=== PATIENT | male | born 1950 | race Caucasian/White ===

== ENCOUNTER 2019-01-22 09:33 | Inpatient (IN) | payer OTHER ==
[~2019-01-22 09:33] MED LIST: BACITRACIN 50,000 UNITS/10 ML SYR IRR ONE; BUPIVACAINE 0.25% 30 ML SDV ONE; BUPIVACAINE/EPI 0.25% 30 ML SDV ONE; CHLORHEXIDINE GLUC HIBICLENS 118 ML BTL TP ONE; CITRATE DEXTROSE SOLN 500 ML BAG ONE; THROMBIN (BOVINE) 20,000 UNIT VIAL TP ONE; TRANEXAMIC ACID 1,000 MG in NS 100 ML IV ONE
[2019-01-22] MEDS ORDERED: ceFAZolin 2 GM/DEXTROSE 100 ML IV ONE (09:41)
[2019-01-22] MEDS ORDERED: fentaNYL 50 MCG in SYRINGE INTRATHECAL 1 SYR IT ONE (09:41)
[2019-01-22] MEDS ORDERED: morphINE PF 0.2 MG in SYRINGE INTRATHECAL 1 SYR IT ONE (09:41)
[2019-01-22] MEDS ORDERED: ACETAMINOPHEN 500 MG TAB PO ONE (09:41)
[2019-01-22] MEDS ORDERED: GABAPENTIN 300 MG CAP PO ONE (09:41)
[2019-01-22] MEDS ORDERED: LR 1,000 ML IV ONE (10:04)
--- NOTE | 2019-01-22 10:38 | PDHPUP ---
History & Physical Update H&P update statement: This history and physical update is based on an assessment of the patient which was completed after admission or registration (within 24 hours), but prior to the surgery/procedure. H&P update: H&P reviewed & patient examined, no change in patient's condition since H&P completed
[2019-01-22] MEDS ORDERED: MIDAZOLAM 2 MG/2 ML VIAL ONE (11:10)
--- NOTE | 2019-01-22 11:10 | PDANEPAE ---
ANE History of Present Illness L3-S1 TLIF for cord compression and radiculopathy ANE Past Medical History - Cardiovascular History Hx Hypertension: Yes Hx Arrhythmias: No Hx Chest Pain: No Hx Coronary Artery / Peripheral Vascular Disease: No Hx CHF / Valvular Disease: No Hx Palpitations: No - Pulmonary History Hx COPD: No Hx Asthma/Reactive Airway Disease: No Hx Recent Upper Respiratory Infection: No Hx Oxygen in Use at Home: No Hx Sleep Apnea: No Sleep Apnea Screening Result - Last Documented: Negative Pulmonary History Comment: PNEUMONIA 2005 - Neurologic History Hx Cerebrovascular Accident: No Hx Seizures: No Hx Dementia: No - Endocrine History Hx Diabetes: No - Renal History Hx Renal Disorders: No - Liver History Hx Hepatic Disorders: No - Neurological & Psychiatric Hx Hx Neurological and Psychiatric Disorders: No - Cancer History Hx Cancer: No - Congenital Disorder History Hx Congenital Disorders: No - GI History Hx Gastrointestinal Disorders: No - Other Health History Other Health History: NEG - Chronic Pain History Chronic Pain: Yes (LOW BACK , KNEE R & HERNIA L) - Surgical History Prior Surgeries: HIP R FX REPAIR & FEMUR REPAIR. HARDWARE REMOVAL HIP R. THUMB R. SPINAL EPIDURAL INJS & ABLATION ANE Review of Systems Review of Systems: - Exercise capacity METS (RN): 4 METS ANE Patient History - Allergies Allergies/Adverse Reactions: levofloxacin [From Levaquin] Allergy (Verified 01/22/19 09:50) Hives - Home Medications Home Medications: Diltiazem HCl [Cartia XT 180mg] 180 mg PO DAILY 01/18/19 [Last Taken 01/22/19 08 :00] Febuxostat [Uloric] 40 mg PO DAILY 01/18/19 [Last Taken 01/22/19 08:00] Herbals/Supplements -Info Only 1 ea PO DAILY 01/18/19 [Last Taken Unknown] Triamterene/Hctz 37.5/25 [Dyazide 37.5/25 (*)] 1 each PO DAILY 01/18/19 [Last Taken 01/22/19 08:00] - NPO status NPO Since - Liquids (Date): 01/22/19 NPO Since - Liquids (Time): 08:00 NPO Since - Solids (Date): 01/21/19 NPO Since - Solids (Time): 20:00 - Smoking Hx Smoking Status: Former smoker ANE Labs/Vital Signs - Vital Signs Blood Pressure: 130/83 Heart Rate: 57 Respiratory Rate: 16 O2 Sat (%): 95 Height: 175.26 cm Weight: 77.111 kg ANE Physical Exam - Airway Neck exam: FROM Mallampati Score: Class 1 Mouth exam: normal dental/mouth exam - Pulmonary Pulmonary: no respiratory distress, no rales or rhonchi - Cardiovascular Cardiovascular: regular rate and rhythym, no murmur, rub, or gallop - ASA Status ASA Status: III ANE Anesthesia Plan Anesthesia Plan: general endotracheal anesthesia Total IV Anesthesia: Yes
[2019-01-22] MEDS ORDERED: MIDAZOLAM 2 MG/2 ML VIAL IVP ONE (11:11)
[2019-01-22] MEDS ORDERED: ROCURONIUM 50 MG/5 ML VIAL ONE (11:15)
[2019-01-22] MEDS ORDERED: LIDOCAINE 2% 100 MG/5 ML SYR ONE (11:15)
[2019-01-22] MEDS ORDERED: ONDANSETRON 4 MG/2 ML VIAL ONE (11:15)
[2019-01-22] MEDS ORDERED: REMIFENTANIL HCL 1 MG VIAL ONE (11:15)
[2019-01-22] MEDS ORDERED: PROPOFOL/EMULSION 500 MG/50 ML BOTTLE IV ONE ×4 (11:15→15:34)
[2019-01-22] MEDS ORDERED: DEXAMETHASONE 4 MG/ML VIAL ONE (11:15)
[2019-01-22] MEDS ORDERED: PROPOFOL 200 MG/20 ML VIAL ONE (11:15)
[2019-01-22] MEDS ORDERED: HYDROmorphONE/DILAUDID 2 MG/ML INJ ONE (15:29)
[2019-01-22] MEDS ORDERED: BISACODYL 10 MG SUPP PR PRN (16:14)
[2019-01-22] MEDS ORDERED: diphenhydrAMINE 25 MG CAP PO PRN (16:14)
[2019-01-22] MEDS ORDERED: MAGNESIUM HYDROXIDE 30 ML UDCUP PO PRN (16:14)
[2019-01-22] MEDS ORDERED: ONDANSETRON DISINTEGRATING 4 MG TAB PO PRN (16:14)
[2019-01-22] MEDS ORDERED: LACTULOSE 20 GM/30 ML UDCUP PO PRN (16:14)
[2019-01-22] MEDS ORDERED: NALOXONE HCL 0.4 MG/ML INJ IVP PRN ×2 (16:14→16:18)
[2019-01-22] MEDS ORDERED: ONDANSETRON 4 MG/2 ML VIAL IVP PRN (16:14)
[2019-01-22] MEDS ORDERED: NS 1,000 ML IV SCH (16:15)
[2019-01-22] MEDS ORDERED: oxyCODONE IR 5 MG TAB PO PRN (16:18)
[2019-01-22] MEDS ORDERED: LR 500 ML IV PRN (16:18)
[2019-01-22] MEDS ORDERED: HYDROmorphONE/DILAUDID 1 MG/ML INJ IVP PRN (16:18)
[2019-01-22] MEDS ORDERED: DIAZEPAM 5 MG/ML 1 ML SYR IVP PRN (16:18)
[2019-01-22] MEDS ORDERED: PROMETHAZINE HCL 25 MG/ML INJ IVP PRN (16:18)
[2019-01-22] MEDS ORDERED: MEPERIDINE 25 MG/0.5 ML AMP IVP PRN (16:18)
[2019-01-22] MEDS ORDERED: PHENYLEPHRINE HCL 100 MCG/ML SYR IVP PRN (16:18)
[2019-01-22] MEDS ORDERED: fentaNYL 100 MCG/2 ML INJ IVP PRN (16:18)
--- NOTE | 2019-01-22 16:21 | SOAPPROG ---
SOAP Progress Note Assessment/Plan: Assessment: 68 yo M sp L3-S1 TLIF Plan: stable to 3N PT/OT lovenox starts POD #1 please call with neuro changes 01/22/19 16:20 Subjective: + back pain, no leg pain Objective: Vital Signs Temp Pulse Resp BP Pulse Ox 36.6 C 57 L 16 130/83 H 95 01/22/19 09:51 01/22/19 11:10 01/22/19 11:10 01/22/19 11:10 01/22/19 11:10 somnolent PERRL, EOMI, no facial droop MAY x4 + light touch ICD10 Worksheet Patient Problems: Problems Problem Status Onset Fusion of spine of lumbar region Acute Lumbar stenosis Acute - ICD10 Problem Qualifiers (1) Fusion of spine of lumbar region
--- NOTE | 2019-01-22 16:39 | POSTANESTH ---
Post Anesthetic Evaluation Cardiovascular Status: Normal, Stable Respiratory Status: Normal, Stable Level of Consciousness/Mental Status: Can Participate in Eval, Moderately Sleepy Pain Control: Adequate, Prn Tx Ordered Nausea/Vomiting Control: Adequate, Prn Tx Ordered Complications Possibly Related to Anesthesia: None Noted
--- NOTE | 2019-01-22 16:57 | PDMN ---
Medical Necessity Medical necessity: [facility] [place]bar [place], 2 days: 68 yo s/p L3/S1 TLLIF Lum [place] Fusion w/ Stealth. [facility] IP Only.
--- NOTE | 2019-01-22 17:25 | GOP ---
[f rep st] OPERATIVE REPORT DATE OF OPERATION: 01/22/2019 SURGEON: Gamal Borges MD NEUROSURGEON: Gamal Borges MD HOT WALKER: Pedro Romero PA-C ANESTHESIA: General endotracheal. PREOPERATIVE DIAGNOSIS: Diagnosis intractable low back pain. Severe multilevel lumbar degenerative joint disease and neural foraminal encroachment. Failed conservative care. POSTOPERATIVE DIAGNOSIS: Diagnosis intractable low back pain. Severe multilevel lumbar degenerative joint disease and neural foraminal encroachment. Failed conservative care. PROCEDURE PERFORMED: L3-4, L4-5, and L5-S1 far lateral transpedicular decompression with L3 through S1 posterior segmental (pedicle screw and axle device) fixation and posterolateral fusion with local autograft, bone morphogenic protein, and morselized allograft. L3-4 L4-5 and L5-S1 posterior/transfo raminal lumbar interbody fusion with 2 structural PEEK interbody spacers with local autograft and bon e morphogenic protein. Use of intraoperative microscopy fluoroscopy and computer volumetric stereota ctic navigation, and intraoperative neurophysiologic testing. Injection of intrathecal narcotic anal gesics and subcutaneous and intramuscular local anesthesia for postoperative pain control. FINDINGS: ESTIMATED BLOOD LOSS: 200 cc. INDICATIONS: The patient is a 68-year-old man with intractable back pain, secondary to multilevel catrachita mbar degenerative joint disease, severe disk space collapse, neural foraminal compression. He has fa iled extensive conservative care and presents now for surgical decompression and stabilization. It w as clearly explained to the patient that there is no guarantee that he will improve and he could get worse from the surgery or have other complications. DESCRIPTION OF PROCEDURE: After informed consent was obtained, the patient was taken to the operatin g room and placed in the prone position on the Tyshawn table. The lumbosacral area was prepped and d raped in a sterile fashion. After fluoroscopic localization of correct levels, the subcutaneous and intramuscular tissues were infiltrated with local anesthesia. A midline linear incision was then created from approximately L3 through S1. This was carried down t o the fascial layer, which was then incised using monopolar electrocautery and carried in the subperi osteal plane along the spinous processes and lamina bilaterally. Intraoperative fluoroscopy was agai n utilized to verify the correct levels. Following this, left-sided far lateral transpedicular decom pressions were performed at the L3-4, L4-5, and L5-S1 levels with complete unroofing of the facet arslan nts and neural foramina and central canal. The Pure life renal neuronavigational system was then brought in and using computer volumetric stereotactic navigation, pedicle screws were placed at L3, L4, L5, and S1 bilaterally. Each individual screw was tested neurophysiologically with monopolar electrostimulat ion and interpretation of the potentials by the surgeon. Short rods were then placed serially first at L5-S1, then at L4-5, then L3-4 under distraction, during which time complete diskectomies were per formed at each of the individual levels with preparation of the endplates and placement of 2 structur al PEEK interbody spacer with local autograft and bone morphogenic protein for L3-4, L4-5, and L5-S1 posterior/transforaminal lumbar interbody fusions. The small rods were then removed and longer rods extending from L3 to S1 with a maximum amount of curvature was then placed and secured under compress ion in order to facilitate bony union and minimize the potential for posterior graft migration. Foll owing this, 200 mcg of Duramorph, along with 50 mcg of fentanyl were injected intrathecally for posto perative pain control, and the remaining lamina and facet joints were extensively decorticated from L 3 to S1 on the right side. The residual local autograft, along with bone morphogenic protein and mor selized allograft were placed out laterally for posterolateral fusion from L3 to S1. An axle device was placed at the L3-4 level in order to prevent junctional kyphosis and hardware failure. A drain was placed. The subcutaneous and intramuscular tissues were re-infiltrated with local anesth esia and the wound was closed in layered fashion using interrupted Vicryl sutures, followed by Steri- Strips on the skin. COMPLICATIONS: None. DISPOSITION: The patient is currently in the process of being repositioned for extubation. /[id number]/MODL
[2019-01-22] MEDS: SENNOSIDES/DOCUSATE SODIUM TAB PO SCH (20:15)
[2019-01-22] MEDS: FAMOTIDINE 20 MG TAB PO SCH (20:15)
[2019-01-22] MEDS: POLYETHYLENE GLYCOL 3350 17 GM PKT PO SCH (21:45)
[2019-01-22] MEDS: ceFAZolin 2 GM/DEXTROSE 100 ML IV SCH (21:45)
[2019-01-23 04:57] LABS: PLATELET COUNT 206 10^3/uL (150-400)
[2019-01-23] MEDS: ceFAZolin 2 GM/DEXTROSE 100 ML IV SCH (05:29)
[2019-01-23] MEDS ORDERED: LORazepam 2 MG/ML INJ IVP PRN (07:29)
[2019-01-23] MEDS ORDERED: FLUMAZENIL 0.5 MG/5 ML MDV IVP PRN (07:29)
--- NOTE | 2019-01-23 07:29 | NEUSURGPN ---
Date of Surgery: 01/22/19 Post Op Day: 1 Assessment/Plan: Assessment: 68 yo M sp L3-S1 TLIF POD#1 Plan: Brace on when out of bed Post op xrays pending [id number] 310 output, will leave in for now PT/OT lovenox starts POD #1 On CIWA protocol please call with neuro changes Discussed patient with Dr Borges Subjective: Doing well, no complaints Objective: AxOx4 MAEx4 5/5 BLE, BUE Sensation intact to light touch BLE Incision/dressing CDI KARLO patent Neuro Check Frequency: per routine - Physician Discussed Patient with : [facility] Neuro[facility] Physical Exam - Vitals, I&O, Labs I and O 01/22/19 01/23/19 01/24/19 05:59 05:59 05:59 Intake Total 2550 200 Output Total 2205 65 Balance 345 135 Weight 77.111 kg Intake: Oral (ml) 750 IV Intake (ml) 1800 IV Infused (ml) 200 ceFAZolin 2 GM/DEXTROSE 200 100 ml @ 200 mls/hr IV Q8HRS [facility] Rx#:[id number] Output: Urine (ml) 1750 Catheter 1750 Estimated Blood Loss (ml) 200 Emesis (ml) 0 KARLO Drain Output (ml) 255 65 #1 Back Tyshawn Leavitt 255 65 Other: Number of Voids Catheter 1 Vital Signs Temp Pulse Resp BP Pulse Ox 36.9 C 70 17 98/68 L 95 01/23/19 04:00 01/23/19 04:00 01/23/19 04:00 01/23/19 04:00 01/23/19 04:00 Laboratory Results 01/23/19 04:29 01/23/19 04:29 ICD10 Worksheet Patient Problems: Problems Problem Status Onset Lumbar stenosis Acute - ICD10 Problem Qualifiers (1) Lumbar stenosis
[2019-01-23] MEDS: ENOXAPARIN 40 MG/0.4 ML SYR SC SCH (09:24)
[2019-01-23] MEDS: POLYETHYLENE GLYCOL 3350 17 GM PKT PO SCH ×3 (09:24→20:31)
[2019-01-23] MEDS: DILTIAZEM CD 180 MG CAP PO SCH (09:25)
[2019-01-23] MEDS: SENNOSIDES/DOCUSATE SODIUM TAB PO SCH ×2 (09:26→20:30)
[2019-01-23] MEDS: TRIAMTERENE/HCTZ 37.5/25 1 EACH CAP PO SCH (09:26)
[2019-01-23] MEDS: FAMOTIDINE 20 MG TAB PO SCH ×2 (09:26→20:30)
[2019-01-23] MEDS: Febuxostat [Uloric] 40 MG PO SCH (09:28)
[2019-01-23] MEDS: THIAMINE HCL 500 MG in NS 100 ML IV SCH (09:34)
[2019-01-23] MEDS: oxyCODONE IR 5 MG TAB PO PRN ×3 (10:57→20:29)
--- NOTE | 2019-01-23 15:18 | ASMTCMCOM ---
CM Note CM Note Notes: Pt had planned surgery, resides with spouse. OT/PT rec home. Anticipate pt will d/c when medically stable, no CM d/c needs identified. CM available for changes/needs. D/c plan: Independent Date Signed: 01/23/2019 03:15 PM Electronically Signed By:EMMA Zaman
[2019-01-23] MEDS: METHOCARBAMOL 750 MG TAB PO PRN (20:30)
[2019-01-24] MEDS: METHOCARBAMOL 750 MG TAB PO PRN ×3 (03:47→18:42)
[2019-01-24] MEDS: oxyCODONE IR 5 MG TAB PO PRN ×5 (03:47→21:34)
--- NOTE | 2019-01-24 07:55 | SOAPPROG ---
SOAP Progress Note Assessment/Plan: Assessment: 68 yo M POD #2 L3-S1 TLIF Plan: stable and doing well overall :) post op x-rays look good PT/OT lovenox/scd/alexis/ for dvt prophylaxis lso brace when out of bed please call with neuro changes discharge when pain controlled discussed with Dr Mendoza 01/22/19 16:20 01/24/19 07:54 Subjective: + back pain, no leg pain, no weakness. Objective: Vital Signs Temp Pulse Resp BP Pulse Ox 36.6 C 60 16 110/79 92 01/24/19 07:23 01/24/19 07:23 01/24/19 07:23 01/24/19 07:23 01/24/19 07:23 Laboratory Results 01/23/19 04:29 01/23/19 04:29 01/23/19 01/24/19 01/25/19 05:59 05:59 05:59 Intake Total 2550 1050 Output Total 2205 1820 Balance 345 -770 AAOx4, +FC PERRL, EOMI, no facial droop 5/5 + light touch C/D/I ICD10 Worksheet Patient Problems: Problems Problem Status Onset Fusion of spine of lumbar region Acute Lumbar stenosis Acute - ICD10 Problem Qualifiers (1) Fusion of spine of lumbar region
[2019-01-24] MEDS: THIAMINE HCL 500 MG in NS 100 ML IV SCH (08:04)
[2019-01-24] MEDS: DILTIAZEM CD 180 MG CAP PO SCH (08:05)
[2019-01-24] MEDS: FAMOTIDINE 20 MG TAB PO SCH ×2 (08:05→21:33)
[2019-01-24] MEDS: ENOXAPARIN 40 MG/0.4 ML SYR SC SCH (08:05)
[2019-01-24] MEDS: SENNOSIDES/DOCUSATE SODIUM TAB PO SCH ×2 (08:06→21:35)
[2019-01-24] MEDS: TRIAMTERENE/HCTZ 37.5/25 1 EACH CAP PO SCH (08:06)
[2019-01-24] MEDS: POLYETHYLENE GLYCOL 3350 17 GM PKT PO SCH ×3 (08:06→21:35)
[2019-01-24] MEDS: Febuxostat [Uloric] 40 MG PO SCH (08:07)
[2019-01-25] MEDS: METHOCARBAMOL 750 MG TAB PO PRN ×4 (00:03→13:05)
[2019-01-25] MEDS: oxyCODONE IR 5 MG TAB PO PRN ×4 (01:02→13:05)
[2019-01-25 08:00] VITALS: BP 118/72
--- NOTE | 2019-01-25 08:20 | NEUSURGPN ---
Date of Surgery: 01/22/19 Post Op Day: 3 Assessment/Plan: Assessment: 68 yo M POD #3 L3-S1 TLIF Plan: stable and doing well overall post op x-rays stable hardware placement PT/OT lovenox/scd/alexis/ for dvt prophylaxis lso brace when out of bed please call with neuro changes Remove KARLO drain Ok to shower ok to discharge home today discussed with Dr Mendoza Subjective: doing well with pain medication schedule this am Objective: AxOx4 MAEx4 5/5 BUE, BLE Dressing/Incision CDI KARLO patent Neuro Check Frequency: per routine Urinary Catheter in Place: No - Physician Discussed Patient with DrCesar: J[facility] Neurosurgery Physical Exam - Vitals, I&O, Labs I and O 01/24/19 01/25/19 01/26/19 05:59 05:59 05:59 Intake Total 1050 Output Total 1820 105 Balance -770 -105 Intake: Oral (ml) 850 IV Infused (ml) 200 ceFAZolin 2 GM/DEXTROSE 200 100 ml @ 200 mls/hr IV Q8HRS [facility] Rx#:[id number] Output: Urine (ml) 1450 Toilet 1100 Urinal 350 KARLO Drain Output (ml) 370 105 #1 Back Tyshawn Leavitt 370 105 Other: Intake Quantity Yes Sufficient Number of Voids Toilet 1 1 Urinal 1 Number of Stools Toilet 1 Bladder Scan Volume (ml) Urinal 475 Vital Signs Temp Pulse Resp BP Pulse Ox 36.9 C 68 14 118/72 96 01/25/19 07:59 01/25/19 07:59 01/25/19 07:59 01/25/19 07:59 01/25/19 07:59 Laboratory Results 01/23/19 04:29 01/23/19 04:29 ICD10 Worksheet Patient Problems: Problems Problem Status Onset Fusion of spine of lumbar region Acute Lumbar stenosis Acute - ICD10 Problem Qualifiers (1) Lumbar stenosis
--- NOTE | 2019-01-25 09:46 | ASMTLACE ---
[facility] Length of stay for Answers: 3 days current admission Acuity / Level of Answers: Yes Care: Did the patient have an inpatient admission? Comorbidities - select Answers: Opioid dependence all that apply / Chronic pain # of Emergency department Answers: 0 visits in the last 6 months Score: 10 Date Signed: 01/25/2019 09:45 AM Electronically Signed By:Aranza Aggarwal RN
[2019-01-25] MEDS: DILTIAZEM CD 180 MG CAP PO SCH (10:10)
[2019-01-25] MEDS: TRIAMTERENE/HCTZ 37.5/25 1 EACH CAP PO SCH (10:11)
[2019-01-25] MEDS: FAMOTIDINE 20 MG TAB PO SCH (10:11)
[2019-01-25] MEDS: ENOXAPARIN 40 MG/0.4 ML SYR SC SCH (10:11)
[2019-01-25] MEDS: Febuxostat [Uloric] 40 MG PO SCH (10:12)
[2019-01-25] MEDS: POLYETHYLENE GLYCOL 3350 17 GM PKT PO SCH (10:30)
[2019-01-25] MEDS: THIAMINE HCL 500 MG in NS 100 ML IV SCH (10:30)
[2019-01-25] MEDS: SENNOSIDES/DOCUSATE SODIUM TAB PO SCH (10:30)
[2019-01-26] MEDS ORDERED: THIAMINE HCL 100 MG TAB PO SCH (07:29)
[2019-02-11] MEDS ORDERED: PROPOFOL 200 MG/20 ML VIAL ONE (07:14)
[2019-02-11] MEDS ORDERED: REMIFENTANIL HCL 1 MG VIAL ONE ×2 (07:14)
[2019-02-11] MEDS ORDERED: PROPOFOL/EMULSION 500 MG/50 ML BOTTLE IV ONE ×2 (07:14)
[2019-02-11] MEDS ORDERED: LIDOCAINE 2% 100 MG/5 ML SYR ONE (07:14)
[2019-02-11] MEDS ORDERED: ROCURONIUM 50 MG/5 ML VIAL ONE (07:14)
[2019-02-11] MEDS ORDERED: DEXAMETHASONE 4 MG/ML VIAL ONE (07:14)
[2019-02-11] MEDS ORDERED: ONDANSETRON 4 MG/2 ML VIAL ONE (07:14)
== END 2019-01-25 13:09 | disposition home or self-care (01) | DRG 455 ==
LOC: F3N 09:33
PROVIDERS: ADMIT Neurological Surgery; ATTEND Neurological Surgery
DX: M51.36 Other intervertebral disc degeneration, lumbar region (principal); M51.26 Other intervertebral disc displacement, lumbar region; I10 Essential (primary) hypertension
CPT/HCPCS: 97161-GP; 97165-GO; C1713; C1762; J0690; J1100; J1170; J1650; J2001; J2250; J2274; J2405; J2704; J3010; J3411

== ENCOUNTER 2019-01-25 19:50 | Emergency (ER) | payer OTHER ==
--- NOTE | 2019-01-25 19:54 | EDPHY ---
General Time Seen by Provider: 01/25/19 19:54 Narrative: CLINICAL IMPRESSION: [ ] ASSESSMENT/PLAN: [ ] DIFFERENTIAL DX: [ ] [ED PROCEDURES:] [ ] ED COURSE: CHIEF COMPLAINT: [ ] HPI: [ ] PMH: [ ] Pertinent Past Surgical History: [ ] Family History: [ ] Social History: [ ] REVIEW OF SYSTEMS: All other systems negative Constitutional: [No fever, no chills, appetite change.] Eyes: [No discharge, vision change] ENT: [No sore throat, congestion, ear pain.] Cardiovascular: [No chest pain, no palpitations.] Respiratory: [No cough, no shortness of breath.] Gastrointestinal: [No abdominal pain, no vomiting, diarrhea.] Genitourinary: [No hematuria, dysuria, flank pain.] Musculoskeletal: [No back pain, joint swelling, joint pain, myalgias.] Skin: [No rashes, color change.] Neurological: [No headache, dizziness, weakness.] PHYSICAL EXAM: General Appearance: [Well-appearing, no acute distress and not toxic-appearing. ] HENT: [ Normocephalic, atraumatic. Bilateral external ears are normal. Bilateral tympanic membranes are normal with pearly johns reflex. Nares are clear, mucosa is pink. Oropharynx is clear, uvula is midline. There is no tonsillar enlargement or exudate. The dentition is normal.] Eyes: [PERRLA, no acute vision change, nystagmus, swelling, discharge, pain or photosensitivity. Conjunctiva pink, no pallor or injection] Neck: [Supple, nontender, no lymphadenopathy, no midline pain, FROM, no meningismus.] Respiratory: [There are no retractions, lungs are clear to auscultation.] Cardiac: [Regular rate and rhythm, no murmurs or gallops.] Gastrointestinal: [Abdomen is soft, nontender, bowel sounds normal, no masses/ hernia, no rigidity, guarding or focal peritoneal findings.] Neurological: [ Alert and oriented x 3, CN 2-12 grossly intact, normal sensation and strength] Skin: [Warm, dry, no rashes, no nodules on palpation.] Musculoskeletal: [Extremities are symmetrical, full range of motion, no tenderness, deformity, swelling, or erythema.] Psychiatric: [Mood and affect are normal, there is no agitation.] MEDICAL DECISION MAKING: Patient was seen independently. Secondary supervising physician at time of evaluation was [ ]. Diagnosis: [ ]. Summary: [ See Assessment and Plan for summary of ED visit ] Clinical lab tests: [ ordered / reviewed]. Independent visualization of images, tracing, or specimens: [ Yes / No]. Decision to obtain medical records or history from someone other than the patient: [ ] Review / Summarize previous medical records: [ ] Discussed patient with another provider: [ ] Patient Progress: [ ]. - History Smoking Status: Former smoker - Objective Vital Signs: Initial Vital Signs Temperature (C) 38.1 C 01/25/19 19:51 Heart Rate 105 H 01/25/19 19:51 Respiratory Rate 20 01/25/19 19:51 Blood Pressure 148/96 H 01/25/19 19:51 O2 Sat (%) 93 01/25/19 19:51 O2 Delivery Mode Room Air Allergies/Adverse Reactions: levofloxacin [From Levaquin] Allergy (Verified 01/25/19 19:51) Hives Home Medications: Medication Instructions Recorded Diltiazem HCl [Cartia XT 180mg] 180 mg PO DAILY 01/18/19 Febuxostat [ULORIC] 40 mg PO DAILY 01/18/19 Herbals/Supplements -Info Only 1 ea PO DAILY 01/18/19 Triamterene/Hctz 37.5/25 [Dyazide 1 each PO DAILY 01/18/19 37.5/25 (*)] Methocarbamol [Robaxin 750 mg (*)] 750 mg PO QID PRN tab 01/25/19 Sennosides/Docusate Sodium 1 - 2 tab PO BID tab 01/25/19 [Senokot-S] oxyCODONE IR [Oxycodone Ir (*)] 5 - 10 mg PO Q4HRS PRN tab 01/25/19 Departure - Departure Condition: Good
[2019-01-25] MEDS ORDERED: NS 1,000 ML IV ONE (19:57)
--- NOTE | 2019-01-25 20:08 | EDPHY ---
H & P Stated Complaint: DC'd today post lumbar fusion 01/22, returns with fever and pain Time Seen by Provider: 01/25/19 19:54 HPI/ROS: CHIEF COMPLAINT: Postoperative fever HISTORY OF PRESENT ILLNESS: The patient presents to the ED with complaints of postoperative fever for the past day. He is postoperative day 3 status post 3 level lumbar fusion. The patient was discharged from the hospital today. The patient denies any acute numbness or weakness in his legs. He denies cough or congestion. He denies rash or dysuria. The patient has no significant comorbidities aside from hypertension and gout. The patient has been using incentive spirometer. He is complaining of some discomfort in his abdominal musculature secondary to having to use muscles that he is not used in some time for ambulation. The patient contacted his neurosurgeon's office today and was referred to the ED for further evaluation. REVIEW OF SYSTEMS: A comprehensive 10 point review of systems is otherwise negative aside from elements mentioned in the history of present illness. Source: Patient Exam Limitations: No limitations - Personal History Current Tetanus/Diphtheria Vaccine: Yes Current Tetanus Diphtheria and Acellular Pertussis (TDAP): Yes - Medical/Surgical History Hx Asthma: No Hx Chronic Respiratory Disease: No Hx Diabetes: No Hx Cardiac Disease: No Hx Renal Disease: No Hx Cirrhosis: No Hx Alcoholism: No Hx HIV/AIDS: No Hx Splenectomy or Spleen Trauma: No Other PMH: right hip, femur, hardware remove, lumbar fusion - Social History Smoking Status: Former smoker - Physical Exam Exam: General Appearance: Alert, no distress Eyes: Pupils equal and round no pallor or injection ENT, Mouth: Mucous membranes moist Respiratory: There are no retractions, lungs are clear to auscultation Cardiovascular: Regular rate and rhythm Gastrointestinal: Abdomen is soft and nontender, no masses, bowel sounds normal Neurological: A&O, normal motor function, normal sensory exam, normal cranial nerves Skin: Surgical without significant discharge, surgical incision clean dry and intact Musculoskeletal: Neck is supple nontender Extremities: symmetrical, full range of motion Constitutional: Initial Vital Signs Temperature (C) 38.1 C 01/25/19 19:51 Heart Rate 105 H 01/25/19 19:51 Respiratory Rate 20 01/25/19 19:51 Blood Pressure 148/96 H 01/25/19 19:51 O2 Sat (%) 93 01/25/19 19:51 O2 Delivery Mode Room Air O2 (L/minute) 2 Allergies/Adverse Reactions: levofloxacin [From Levaquin] Allergy (Verified 01/25/19 19:51) Hives Home Medications: Medication Instructions Recorded Diltiazem HCl [Cartia XT 180mg] 180 mg PO DAILY 01/18/19 Febuxostat [ULORIC] 40 mg PO DAILY 01/18/19 Herbals/Supplements -Info Only 1 ea PO DAILY 01/18/19 Triamterene/Hctz 37.5/25 [Dyazide 1 each PO DAILY 01/18/19 37.5/25 (*)] Methocarbamol [Robaxin 750 mg (*)] 750 mg PO QID PRN tab 01/25/19 Sennosides/Docusate Sodium 1 - 2 tab PO BID tab 01/25/19 [Senokot-S] oxyCODONE IR [Oxycodone Ir (*)] 5 - 10 mg PO Q4HRS PRN tab 01/25/19 Medical Decision Making - Diagnostics Imaging Results: Imaging Impressions Chest X-Ray 01/25/19 19:57 Impression: Equivocal small left lateral lower lung zone infiltrate. ED Course/Re-evaluation: Patient presents the ED with a 1 day history of low-grade fever 38 degrees. Patient's surgical incision is clean dry and intact. There is no evidence of dehiscence or discharge. The patient's chest x-ray demonstrates likely atelectasis. The patient has no symptoms of urinary tract infection. The patient has no appreciable leukocytosis. He is neurologically intact. Given the fact the patient is only postop day 3 I feel the likelihood of a surgical infection is quite low. Additionally an MRI is likely to be nondiagnostic given how close he is to his operation. I discussed the case with Dr. George who was aware of the patient's transfer to the emergency department and he is comfortable with the patient going home and keeping an eye on his fever curve over the next several days. - Data Points Laboratory Results: Laboratory Results 01/25/19 20:04 01/25/19 20:04 01/25/19 01/25/19 20:04 20:04 WBC 10.65 10^3/uL H 10^3/uL (3.80-9.50) RBC 5.31 10^6/uL 10^6/uL (4.40-6.38) Hgb 17.5 g/dL g/dL (13.7-17.5) Hct 50.6 % % (40.0-51.0) MCV 95.3 fL fL (81.5-99.8) MCH 33.0 pg pg (27.9-34.1) MCHC 34.6 g/dL g/dL (32.4-36.7) RDW 11.8 % % (11.5-15.2) Plt Count 208 10^3/uL 10^3/uL (150-400) MPV 10.4 fL fL (8.7-11.7) Neut % (Auto) 72.5 % % (39.3-74.2) Lymph % (Auto) 16.6 % % (15.0-45.0) Humphreys % (Auto) 8.7 % % (4.5-13.0) Eos % (Auto) 1.4 % % (0.6-7.6) Baso % (Auto) 0.4 % % (0.3-1.7) Nucleat RBC Rel Count 0.0 % % (0.0-0.2) Absolute Neuts (auto) 7.72 10^3/uL H 10^3/uL (1.70-6.50) Absolute Lymphs (auto) 1.77 10^3/uL 10^3/uL (1.00-3.00) Absolute Monos (auto) 0.93 10^3/uL H 10^3/uL (0.30-0.80) Absolute Eos (auto) 0.15 10^3/uL 10^3/uL (0.03-0.40) Absolute Basos (auto) 0.04 10^3/uL 10^3/uL (0.02-0.10) Absolute Nucleated RBC 0.00 10^3/uL 10^3/uL (0-0.01) Immature Gran % 0.4 % % (0.0-1.1) Immature Gran # 0.04 10^3/uL 10^3/uL (0.00-0.10) Sodium 133 mEq/L L mEq/L (135-145) Potassium 3.4 mEq/L L mEq/L (3.5-5.2) Chloride 92 mEq/L L mEq/L (97-110) Carbon Dioxide 27 mEq/l mEq/l (22-31) Anion Gap 14 mEq/L mEq/L (6-14) BUN 15 mg/dL mg/dL (7-23) Creatinine 1.2 mg/dL mg/dL (0.7-1.3) Estimated GFR > 60 Glucose 94 mg/dL mg/dL (70-100) Calcium 9.5 mg/dL mg/dL (8.5-10.4) Medications Given: Discontinued Medications Hydromorphone HCl (Dilaudid) 0.5 mg IVP EDNOW ONE Stop: 01/25/19 21:02 Last Admin: 01/25/19 21:08 Dose: 0.5 mg Sodium Chloride (Ns) 1,000 mls @ 0 mls/hr IV ONCE ONE; Wide Open PRN Reason: Protocol Stop: 01/25/19 19:58 Last Admin: 01/25/19 20:03 Dose: 1,000 mls Morphine Sulfate (Morphine) 4 mg IVP EDNOW ONE Stop: 01/25/19 20:28 Last Admin: 01/25/19 20:30 Dose: 4 mg Departure - Departure Disposition: Home, Routine, Self-Care Clinical Impression: Fever, Atelectasis Condition: Good Instructions: Atelectasis (ED) Additional Instructions: 1. Please follow-up with your neurosurgeon for recheck this week. 2. Return to the ED for worsening symptoms, markedly elevated fever, acute numbness, weakness or other concerns. 3. Please continue to use your incentive spirometer as you likely are having a fever from not taking deep breaths. 4. Please contact your neurosurgeon tomorrow with an update on your condition. Referrals: Gamal Borges MD [Medical Doctor] - As per Instructions
[2019-01-25 20:25] LABS: PLATELET COUNT 208 10^3/uL (150-400)
[2019-01-25] MEDS ORDERED: HYDROmorphONE/DILAUDID 2 MG/ML INJ IVP ONE (21:01)
[2019-01-25 22:00] VITALS: BP 135/81
== END 2019-01-25 22:02 | disposition home or self-care (01) ==
DX: R50.82 Postprocedural fever (principal); J98.11 Atelectasis; I10 Essential (primary) hypertension; M10.9 Gout, unspecified; Z98.1 Arthrodesis status; Z87.891 Personal history of nicotine dependence
CPT/HCPCS: 71046; 96374; 96375; 99284; J1170; J2270

== ENCOUNTER 2019-01-28 05:54 | Observation (INO) | payer OTHER ==
--- NOTE | 2019-01-28 06:10 | EDPHY ---
H & P Stated Complaint: BACK PAIN, N/V/D Time Seen by Provider: 01/28/19 06:10 HPI/ROS: HPI CHIEF COMPLAINT: Nausea vomiting diarrhea increasing back pain. Recent ER visit, recent lumbar fusion. HISTORY OF PRESENT ILLNESS: 68-year-old male, with a recent lumbar fusion, presents to the emergency room nausea vomiting and diarrhea. Patient states that was recently in the emergency room for low-grade fever of 38 degrees, back pain. He states that he received pain medicine here in emergency room and did well and then was discharged home. However after arriving home he has had increasing nausea vomiting and diarrhea. He is unable to tolerate his p.o. Medications at home. He denies high fever. He presents back to the emergency room nausea vomiting diarrhea and back pain. Unable to tolerate home medications. He denies any chest pain or shortness of breath or productive cough. Past Medical History: Hypertension and gout Past Surgical History: Lumbar fusion Social History: Denies drugs alcohol tobacco. Resides in [facility]. Family History: Noncontributory Dr. Mendoza is his neurosurgeon. ROS REVIEW OF SYSTEMS: 10 Systems were reviewed and negative with the exception of the elements mentioned in the history of present illness. Exam Constitutional triage nursing summary reviewed, vital signs reviewed, awake/ alert. Vital signs stable. Eyes normal conjunctivae and sclera, EOMI, PERRLA. HENT normal inspection, atraumatic, moist mucus membranes, no epistaxis, neck supple/ no meningismus, no raccoon eyes. Respiratory clear to auscultation bilaterally, normal breath sounds, no respiratory distress, no wheezing. Cardiovascular rate normal, regular rhythm, no murmur, no edema, distal pulses normal. Gastrointestinal soft, non-tender, no rebound, no guarding, normal bowel sounds, no distension, no pulsatile mass. Genitourinary no CVA tenderness. Musculoskeletal back exam: Clean incision, no signs of dehiscence or infection no redness no drainage. Normal range of motion of bilateral lower extremities. no midline vertebral tenderness, full range of motion, no calf swelling, no tenderness of extremities, no meningismus, good pulses, neurovascularly intact. Skin pink, warm, & dry, no rash, skin atraumatic. Neurologic awake, alert and oriented x 3, AAOx3, moves all 4 extremities equally, motor intact, sensory intact, CN II-XII intact, normal cerebellar, normal vision, normal speech. Psychiatric normal mood/affect. Heme/Lymph/Immune no lymphadenopathy. Differential Diagnosis: Includes but is not limited to in a particular order acute dehydration, electrolyte disturbance, acute GI illness, nausea vomiting diarrhea, pneumonia, infection Medical Decision Making: Plan for this patient he arrives to the emergency room nausea vomiting diarrhea worsening. Unable to tolerate p.o. Meds. IV last stab she receive IV Dilaudid for pain control IV Zofran nausea, IV fluids, basic labs, repeat chest x-ray and re-evaluate. Re-evaluation: Patient re-evaluated 7:15 a.m. Improved after IV fluids IV Dilaudid IV Zofran. Still has back pain. No fever here, no signs of cauda equina, no leg weakness no saddle anesthesia. Incision appears clean dry and intact. Spoke with Neurosurgery Dr. Calloway, understands patient is coming in the hospital for further care. Will consult the hospitalist service for admission. X-ray of the chest: One view negative for acute cardiopulmonary disease. Image interpreted by myself. 737 re-evaluation plan for hospital admission for nausea vomiting diarrhea back pain. No red flags on exam. No saddle anesthesia, no leg weakness, no evidence of infection at the surgical site. Plan for admission for nausea vomiting diarrhea pain control. Patient updated agrees for this plan. Spoke with Dr. Mac, Agrees to admit. Source: Patient - Personal History Current Tetanus Diphtheria and Acellular Pertussis (TDAP): Yes - Medical/Surgical History Hx Asthma: No Hx Chronic Respiratory Disease: No Hx Diabetes: No Hx Cardiac Disease: No Hx Renal Disease: No Hx Cirrhosis: No Hx Alcoholism: No Hx HIV/AIDS: No Hx Splenectomy or Spleen Trauma: No Other PMH: right hip, femur, hardware remove, lumbar fusion - Social History Smoking Status: Former smoker Constitutional: Initial Vital Signs Temperature (C) 36.9 C 01/28/19 06:02 Heart Rate 104 H 01/28/19 06:02 Respiratory Rate 16 01/28/19 06:02 Blood Pressure 147/88 H 01/28/19 06:02 O2 Sat (%) 94 01/28/19 06:02 O2 Delivery Mode Room Air Allergies/Adverse Reactions: levofloxacin [From Levaquin] Allergy (Verified 01/25/19 19:51) Hives Home Medications: Medication Instructions Recorded Diltiazem HCl [Cartia XT 180mg] 180 mg PO DAILY 01/18/19 Febuxostat [ULORIC] 40 mg PO DAILY 01/18/19 Herbals/Supplements -Info Only 1 ea PO DAILY 01/18/19 Triamterene/Hctz 37.5/25 [Dyazide 1 each PO DAILY 01/18/19 37.5/25 (*)] Methocarbamol [Robaxin 750 mg (*)] 750 mg PO QID PRN tab 01/25/19 Sennosides/Docusate Sodium 1 - 2 tab PO BID tab 01/25/19 [Senokot-S] oxyCODONE IR [Oxycodone Ir (*)] 5 - 10 mg PO Q4HRS PRN tab 01/25/19 Medical Decision Making - Data Points Laboratory Results: Laboratory Results 01/28/19 06:31 01/28/19 06:31 01/28/19 01/28/19 01/28/19 06:31 06:31 06:31 WBC 9.52 10^3/uL H 10^3/uL (3.80-9.50) RBC 5.05 10^6/uL 10^6/uL (4.40-6.38) Hgb 16.7 g/dL g/dL (13.7-17.5) Hct 46.8 % % (40.0-51.0) MCV 92.7 fL fL (81.5-99.8) MCH 33.1 pg pg (27.9-34.1) MCHC 35.7 g/dL g/dL (32.4-36.7) RDW 11.5 % % (11.5-15.2) Plt Count 251 10^3/uL 10^3/uL (150-400) MPV 10.1 fL fL (8.7-11.7) Neut % (Auto) 78.6 % H % (39.3-74.2) Lymph % (Auto) 9.9 % L % (15.0-45.0) [place] % (Auto) 9.0 % % (4.5-13.0) Eos % (Auto) 1.4 % % (0.6-7.6) Baso % (Auto) 0.4 % % (0.3-1.7) Nucleat RBC Rel Count 0.0 % % (0.0-0.2) Absolute Neuts (auto) 7.48 10^3/uL H 10^3/uL (1.70-6.50) Absolute Lymphs (auto) 0.94 10^3/uL L 10^3/uL (1.00-3.00) Absolute Monos (auto) 0.86 10^3/uL H 10^3/uL (0.30-0.80) Absolute Eos (auto) 0.13 10^3/uL 10^3/uL (0.03-0.40) Absolute Basos (auto) 0.04 10^3/uL 10^3/uL (0.02-0.10) Absolute Nucleated RBC 0.00 10^3/uL 10^3/uL (0-0.01) Immature Gran % 0.7 % % (0.0-1.1) Immature Gran # 0.07 10^3/uL 10^3/uL (0.00-0.10) PT 12.6 SEC SEC (12.0-15.0) INR 0.98 (0.83-1.16) APTT 28.6 SEC SEC (23.0-38.0) VBG Lactic Acid Sodium 134 mEq/L L mEq/L (135-145) Potassium 3.7 mEq/L mEq/L (3.5-5.2) Chloride 96 mEq/L L mEq/L (97-110) Carbon Dioxide 22 mEq/l mEq/l (22-31) Anion Gap 16 mEq/L H mEq/L (6-14) BUN 18 mg/dL mg/dL (7-23) Creatinine 1.2 mg/dL mg/dL (0.7-1.3) Estimated GFR > 60 Glucose 111 mg/dL H mg/dL (70-100) Calcium 9.3 mg/dL mg/dL (8.5-10.4) Total Bilirubin 1.0 mg/dL mg/dL (0.1-1.4) Conjugated Bilirubin 0.5 mg/dL mg/dL (0.0-0.5) Unconjugated Bilirubin 0.5 mg/dL mg/dL (0.0-1.1) AST 26 IU/L IU/L (17-59) ALT 41 IU/L IU/L (21-72) Alkaline Phosphatase 54 IU/L IU/L (38-126) Total Protein 6.9 g/dL g/dL (6.3-8.2) Albumin 4.1 g/dL g/dL (3.5-5.0) Lipase 73 IU/L IU/L (23-300) 01/28/19 06:31 WBC RBC Hgb Hct MCV MCH MCHC RDW Plt Count MPV Neut % (Auto) Lymph % (Auto) [place] % (Auto) Eos % (Auto) Baso % (Auto) Nucleat RBC Rel Count Absolute Neuts (auto) Absolute Lymphs (auto) Absolute Monos (auto) Absolute Eos (auto) Absolute Basos (auto) Absolute Nucleated RBC Immature Gran % Immature Gran # PT INR APTT VBG Lactic Acid 2.3 mmol/L H mmol/L (0.7-2.1) Sodium Potassium Chloride Carbon Dioxide Anion Gap BUN Creatinine Estimated GFR Glucose Calcium Total Bilirubin Conjugated Bilirubin Unconjugated Bilirubin AST ALT Alkaline Phosphatase Total Protein Albumin Lipase Medications Given: Discontinued Medications Fentanyl (Sublimaze) 100 mcg IVP EDNOW ONE Stop: 01/28/19 07:34 Last Admin: 01/28/19 07:37 Dose: 100 mcg Hydromorphone HCl (Dilaudid) 1 mg IVP EDNOW ONE Stop: 01/28/19 06:22 Last Admin: 01/28/19 06:40 Dose: 1 mg Sodium Chloride (Ns) 1,000 mls @ 0 mls/hr IV EDNOW ONE; Wide Open PRN Reason: Protocol Stop: 01/28/19 06:22 Last Admin: 01/28/19 06:39 Dose: 1,000 mls Sodium Chloride (Ns) 1,000 mls @ 0 mls/hr IV EDNOW ONE; Wide Open PRN Reason: Protocol Stop: 01/28/19 06:22 Last Admin: 01/28/19 06:31 Dose: 1,000 mls Ondansetron HCl (Zofran) 4 mg IVP EDNOW ONE Stop: 01/28/19 06:22 Last Admin: 01/28/19 06:39 Dose: 4 mg Departure - Departure Disposition: [facility] Acute Clinical Impression: Fusion of lumbar spine, Vomiting, Diarrhea, Back pain Condition: Fair
[2019-01-28] MEDS ORDERED: HYDROmorphONE/DILAUDID 2 MG/ML INJ IVP ONE (06:21)
[2019-01-28] MEDS ORDERED: NS 1,000 ML IV ONE ×2 (06:21)
[2019-01-28] MEDS ORDERED: ONDANSETRON 4 MG/2 ML VIAL IVP ONE (06:21)
[2019-01-28 06:43] LABS: PLATELET COUNT 251 10^3/uL (150-400)
[2019-01-28 06:52] LABS: INR 0.98 (0.83-1.16); PROTIME(PATIENT) 12.6 SEC (12.0-15.0)
[2019-01-28] MEDS ORDERED: fentaNYL 100 MCG/2 ML INJ IVP ONE (07:33)
--- NOTE | 2019-01-28 08:27 | PDGENHP ---
History and Physical - Chief Complaint pain, diarrhea, - History of Present Illness EDD SUGGS is a 68-year-old male with past medical history of hypertension and gout who was recently admitted for a L3 through S1 TLIF on January 22 who presented to the emergency room with complaints of fevers chills diarrhea and uncontrollable pain. Says he was discharged and felt that he was discharged too early. Since discharge he has not been able to control his back pain. He also has had subjective fevers. He re-presented to the emergency room night after discharge, with complaints of a fever to 38 degrees. He also has complained of persistent diarrhea and abdominal discomfort since that time. He states that the abdominal pain is due to having to logroll in order to sit up. He has also had nausea with some intermittent vomiting. He has denied any bloody or black stools. He denied any cough chest pain dysuria hematuria or urinary symptoms. He denied any numbness tingling loss of bowel or bladder or extremity weakness. History Information - Allergies/Home Medication List Allergies/Adverse Reactions: levofloxacin [From Levaquin] Allergy (Verified 01/25/19 19:51) Hives Home Medications: Diltiazem HCl [Cartia XT 180mg] 180 mg PO DAILY 01/18/19 [Last Taken 01/27/19] Febuxostat [ULORIC] 40 mg PO DAILY 01/18/19 [Last Taken 01/27/19] Triamterene/Hctz 37.5/25 [Dyazide 37.5/25 (*)] 1 each PO DAILY 01/18/19 [Last Taken 01/27/19] I have personally reviewed and updated: family history, medical history, social history, surgical history - Past Medical History Additional medical history: gout, htn, - Surgical History Additional surgical history: spinal fusion, pin in right leg. - Family History Positive for: non-pertinent - Social History Smoking Status: Former smoker Alcohol Use: Occasionally Drug Use: None Review of Systems Review of Systems: ROS: 10pt was reviewed & negative except for what was stated in HPI & below Physical Exam Physical Exam: Temp Pulse Resp BP Pulse Ox 36.9 C 92 20 120/89 H 97 01/28/19 06:02 01/28/19 07:00 01/28/19 07:00 01/28/19 07:00 01/28/19 07:00 Constitutional: no apparent distress, appears nourished, not in pain Eyes: PERRL, anicteric sclera, EOMI Ears, Nose, Mouth, Throat: moist mucous membranes, hearing normal, ears appear normal, no oral mucosal ulcers Cardiovascular: regular rate and rhythym, no murmur, rub, or gallop, No edema Respiratory: no respiratory distress, no rales or rhonchi, clear to auscultation Gastrointestinal: normoactive bowel sounds, soft, non-tender abdomen, no palpable masses Genitourinary: no bladder fullness, no bladder tenderness Skin: warm, normal color, no rashes or abrasions, no fluctuance, no induration, other (Lower back incision is covered with bandage with some mild bruising and erythema surrounding incision.), No mottled Musculoskeletal: full muscle strength, no muscle tenderness, normal joint ROM, no joint effusions Psychiatric: interacting appropriately, not anxious, not encephalopathic, thought process linear Lymph, Heme, Immunologic: no cervical LAD, no supraclavicular LAD Lab Data & Imaging Review 01/28/19 06:31 01/28/19 06:31 WBC 9.52 10^3/uL (3.80-9.50) H 01/28/19 06:31 RBC 5.05 10^6/uL (4.40-6.38) 01/28/19 06:31 Hgb 16.7 g/dL (13.7-17.5) 01/28/19 06:31 Hct 46.8 % (40.0-51.0) 01/28/19 06:31 MCV 92.7 fL (81.5-99.8) 01/28/19 06:31 MCH 33.1 pg (27.9-34.1) 01/28/19 06:31 MCHC 35.7 g/dL (32.4-36.7) 01/28/19 06:31 RDW 11.5 % (11.5-15.2) 01/28/19 06:31 Plt Count 251 10^3/uL (150-400) 01/28/19 06:31 MPV 10.1 fL (8.7-11.7) 01/28/19 06:31 Neut % (Auto) 78.6 % (39.3-74.2) H 01/28/19 06:31 Lymph % (Auto) 9.9 % (15.0-45.0) L 01/28/19 06:31 [place] % (Auto) 9.0 % (4.5-13.0) 01/28/19 06:31 Eos % (Auto) 1.4 % (0.6-7.6) 01/28/19 06:31 Baso % (Auto) 0.4 % (0.3-1.7) 01/28/19 06:31 Nucleat RBC Rel Count 0.0 % (0.0-0.2) 01/28/19 06:31 Absolute Neuts (auto) 7.48 10^3/uL (1.70-6.50) H 01/28/19 06:31 Absolute Lymphs (auto) 0.94 10^3/uL (1.00-3.00) L 01/28/19 06:31 Absolute Monos (auto) 0.86 10^3/uL (0.30-0.80) H 01/28/19 06:31 Absolute Eos (auto) 0.13 10^3/uL (0.03-0.40) 01/28/19 06:31 Absolute Basos (auto) 0.04 10^3/uL (0.02-0.10) 01/28/19 06:31 Absolute Nucleated RBC 0.00 10^3/uL (0-0.01) 01/28/19 06:31 Immature Gran % 0.7 % (0.0-1.1) 01/28/19 06:31 Immature Gran # 0.07 10^3/uL (0.00-0.10) 01/28/19 06:31 PT 12.6 SEC (12.0-15.0) 01/28/19 06:31 INR 0.98 (0.83-1.16) 01/28/19 06:31 APTT 28.6 SEC (23.0-38.0) 01/28/19 06:31 VBG Lactic Acid 2.3 mmol/L (0.7-2.1) H 01/28/19 06:31 Sodium 134 mEq/L (135-145) L 01/28/19 06:31 Potassium 3.7 mEq/L (3.5-5.2) 01/28/19 06:31 Chloride 96 mEq/L (97-110) L 01/28/19 06:31 Carbon Dioxide 22 mEq/l (22-31) 01/28/19 06:31 Anion Gap 16 mEq/L (6-14) H 01/28/19 06:31 BUN 18 mg/dL (7-23) 01/28/19 06:31 Creatinine 1.2 mg/dL (0.7-1.3) 01/28/19 06:31 Estimated GFR > 60 01/28/19 06:31 Glucose 111 mg/dL (70-100) H 01/28/19 06:31 Calcium 9.3 mg/dL (8.5-10.4) 01/28/19 06:31 Total Bilirubin 1.0 mg/dL (0.1-1.4) 01/28/19 06:31 Conjugated Bilirubin 0.5 mg/dL (0.0-0.5) 01/28/19 06:31 Unconjugated Bilirubin 0.5 mg/dL (0.0-1.1) 01/28/19 06:31 AST 26 IU/L (17-59) 01/28/19 06:31 ALT 41 IU/L (21-72) 01/28/19 06:31 Alkaline Phosphatase 54 IU/L (38-126) 01/28/19 06:31 Total Protein 6.9 g/dL (6.3-8.2) 01/28/19 06:31 Albumin 4.1 g/dL (3.5-5.0) 01/28/19 06:31 Lipase 73 IU/L (23-300) 01/28/19 06:31 Assessment & Plan Assessment: Back pain (Acute)- no fevers here and no appreciable leukocytosis to suggest infection. Chest x-ray shows no evidence of pneumonia, infiltrate or loosening of the hardware. He could have an underlying infectious diarrhea. Case discussed with the emergency room physician and neurosurgery has been consulted. -check CRP -Neurosurgery consulting -pain medications Diarrhea (Acute)- was just hospitalized so is at high risk for an infectious diarrhea including C diff. -GI pathogen panel pending Fusion of spine of lumbar region (Acute)- chart reviewed and patient just had a L3 through S1 spinal fusion with Dr. Mendoza on January 22. Neurosurgery has been consulted who will see the patient Vomiting (Acute)- no reports of hematemesis or coffee-ground emesis. GI pathogen panel pending but patient also states this is likely due to taking pain medications on an empty stomach. Hypertension- hold patient's home diuretic but continue his verapamil Gout- should be fine to continue Uloric Prophylaxis- SCDs, ambulate Fluids- saline intravenous Electrolytes- within normal limits Nutrition- regular diet Cor- full Dispo- observation for evaluation of diarrhea, vomiting and back
[2019-01-28] MEDS ORDERED: ONDANSETRON 4 MG/2 ML VIAL IVP PRN (08:46)
[2019-01-28] MEDS ORDERED: ONDANSETRON DISINTEGRATING 4 MG TAB PO PRN (08:46)
[2019-01-28] MEDS ORDERED: ACETAMINOPHEN 325 MG TAB PO PRN (08:46)
[2019-01-28] MEDS: NS 1,000 ML IV SCH ×2 (12:17→18:23)
[2019-01-28] MEDS: HYDROmorphONE/DILAUDID 1 MG/ML INJ IVP PRN ×2 (12:17→18:22)
[2019-01-28] MEDS ORDERED: DILTIAZEM CD 180 MG CAP PO ONE (13:15)
[2019-01-28] MEDS ORDERED: TRIAMTERENE/HCTZ 37.5/25 1 EACH CAP PO ONE (13:15)
[2019-01-28] MEDS: OXYCODONE/APAP 5/325 TAB PO PRN ×3 (15:31→22:27)
[2019-01-29] MEDS: OXYCODONE/APAP 5/325 TAB PO PRN ×2 (03:35→10:07)
[2019-01-29 05:03] LABS: PLATELET COUNT 212 10^3/uL (150-400)
--- NOTE | 2019-01-29 08:16 | NEUSURGPN ---
Assessment/Plan: Courtesy Visit: S: Awake and alert. Pt with expected lower back pain. N/V/D better per pt O: AFVSS/PERRLA/EOMI no droop CN 2-12 grossly intact +lt touch 5/5 BUE/BLE = Incision is clean and dry/intact Dressing place A/P: 68 yo male that is s/p L spine fusion with Dr Mendoza -orders in place per IM -pt admitted with N/V -pts incision looks good -dressing in place -pt states that he feels better this am -defer to IM for dc -pt has scheduled follow up with Dr Mendoza's team-call office to confirm Urinary Catheter in Place: No - Physician Discussed Patient with : Jony Neurosurgery Physical Exam - Vitals, I&O, Labs I and O 01/28/19 01/29/19 01/30/19 05:59 05:59 05:59 Intake Total 1000 Output Total 100 Balance 1000 -100 Weight 77.111 kg Intake: IV Infused (ml) 1000 Output: Urine (ml) 100 Toilet 100 Other: Intake Quantity Yes Sufficient Number of Voids Toilet 1 Number of Stools Toilet 1 Microbiology 01/28/19 15:45 Gastrointestinal Tract Panel (PCR) - Final Stool No Organism Detected By Pcr Vital Signs Temp Pulse Resp BP Pulse Ox 36.6 C 75 18 145/79 H 96 01/29/19 07:31 01/29/19 07:31 01/29/19 07:31 01/29/19 07:31 01/29/19 07:31 Laboratory Results 01/29/19 04:15 01/29/19 04:15 ICD10 Worksheet Patient Problems: Problems Problem Status Onset Back pain Acute Diarrhea Acute Fusion of spine of lumbar region Acute Vomiting Acute Lumbar stenosis Acute
[2019-01-29] MEDS ORDERED: TRIAMTERENE/HCTZ 37.5/25 1 EACH CAP PO SCH (09:00)
[2019-01-29] MEDS ORDERED: (Febuxostat [Uloric] 40 MG) PO SCH (09:00)
[2019-01-29] MEDS ORDERED: DILTIAZEM CD 180 MG CAP PO SCH (09:00)
[2019-01-29 11:59] VITALS: BP 119/69
[2019-01-29] MEDS ORDERED: POTASSIUM CL 20 MEQ TAB PO ONE ×2 (12:42→15:30)
--- NOTE | 2019-01-29 13:49 | GDS ---
[f rep st] DISCHARGE SUMMARY FINAL DIAGNOSES: 1. Nausea, vomiting, diarrhea, resolved. 2. Back pain. 3. L3 through S1 fusion approximately [address] Esquivel 4. Hypertension. 5. Gout. HOSPITAL COURSE: This is a 68-year-old man who was admitted with uncontrolled pain as well as nausea , vomiting, diarrhea. He had negative GI panel. His GI symptoms have resolved. Uncontrolled pain w as likely due to inability to tolerate pain medications. I do wonder if the pain medications themsel ves were making him nauseous. Regardless, he has been tolerating them here without any issues. Has not received any IV narcotics. On the day of his discharge we discussed discharge home and he is com fortable with this. He has a followup with Dr. Mendoza 4 days after the day of discharge. He has all the medications that he needs. He has been hypokalemic. I have repleted this on the day of discharge. This is likely due to poor p.o. intake and diarrhea, this should improve now that his GI symptoms are resolved. I discussed all this with him and his . /[id number]/MODL
--- NOTE | 2019-01-29 14:31 | ASMTDCNOTE ---
Case Management Discharge Discharge Order Complete? Answers: Yes Patient to Obtain Answers: via Family Medications Transportation Arranged Answers: Family/Friends Transport will Pick (Date 01/29/2019 12:00 AM & Time) Family Notified Answers: Yes Notes: in the room Discharge Comments Notes: Spoke with pt and in the room. Pt moving comfortably around the room. Pt comfortable with plan to discharge home independently in [place]. No CM needs noted at this time. Date Signed: 01/29/2019 02:11 PM Electronically Signed By:Oneida Leslie
--- NOTE | 2019-01-29 14:37 | ASDISCHSUM ---
Discharge Information Plan Status:Home with No Needs Medically Cleared to Leave:01/29/2019 Discharge Date:01/29/2019 CM D/C Disposition:Home, Routine, Self-Care ADT D/C Disposition:Home, Routine, Self-Care Projected Discharge Date:01/29/2019 Transportation at D/C:Family Discharge Delay Reason: Follow-Up Date:01/29/2019 Discharge Slot: Final Diagnosis:uncontrolled post op pain Placement Information Patient Contact Information Contact Name:ALESSANDRO Relationship: Address:[address] City:[facility] Phone: [facility] Code:[place] [address] Email: Financial Information Financial Class:Medicare Advantage Plans Primary Plan Desc:[employer] PP MEDICARE Primary Plan Number:[id number] Secondary Plan Desc: Secondary Plan Number: Assessment Information Case Management Discharge Plan Note Case Management Discharge Discharge Order Complete? Answers: Yes Patient to Obtain Answers: via Family Medications Transportation Arranged Answers: Family/Friends Transport will Pick (Date 01/29/2019 12:00 AM & Time) Family Notified Answers: Yes Notes: in the room Discharge Comments Notes: Spoke with pt and in the room. Pt moving comfortably around the room. Pt comfortable with plan to discharge home independently in [place]. No CM needs noted at this time. Date Signed: 01/29/2019 02:11 PM Electronically Signed By:Oneida Leslie MAIN MAIN Length of stay for Answers: 1 day current admission Acuity / Level of Answers: No Care: Did the patient have an inpatient admission? Comorbidities - select Answers: Other Notes: spinal surgery all that apply # of Emergency department Answers: 1-2 visits in the last 6 months Score: 3 Date Signed: 01/29/2019 02:12 PM Electronically Signed By:Oneida Leslie Intervention Information
--- NOTE | 2019-01-29 14:56 | ASMTLACE ---
MAIN Length of stay for Answers: 1 day current admission Acuity / Level of Answers: No Care: Did the patient have an inpatient admission? Comorbidities - select Answers: Other Notes: spinal surgery all that apply # of Emergency department Answers: 1-2 visits in the last 6 months Score: 3 Date Signed: 01/29/2019 02:12 PM Electronically Signed By:Oneida Leslie
== END 2019-01-29 15:39 | disposition home or self-care (01) ==
LOC: F3E 13:44
PROVIDERS: ADMIT Student in an Organized Health Care Education/Training Program; ATTEND Student in an Organized Health Care Education/Training Program
DX: R11.2 Nausea with vomiting, unspecified (principal); R19.7 Diarrhea, unspecified; M54.5 Low back pain; Z98.1 Arthrodesis status; I10 Essential (primary) hypertension; M10.9 Gout, unspecified; E86.9 Volume depletion, unspecified
CPT/HCPCS: 71045; 97161; 97165; G0378; J1170; J2405; J3010; 96374